=== PATIENT | male | born 1950 | race Caucasian/White ===

== ENCOUNTER 2019-07-06 14:21 | Inpatient (IN) | payer OTHER ==
[~2019-07-06] VITALS: Ht 167.6 cm; Wt 69.4 kg
[2019-07-06 14:23] VITALS: BP 143/89
[2019-07-06 15:44] VITALS: BP 143/89
[2019-07-06] MEDS ORDERED: NORVASC5 MG PO (15:53)
[2019-07-06] MEDS ORDERED: CIALIS5 MG PO (15:54)
[2019-07-06] MEDS ORDERED: LIPITOR10 MG PO ×2 (15:55→18:29)
--- NOTE | 2019-07-06 16:07 | NUR ---
TRIAGE NOTE COMPLETED BY DESHAWN CARRERA RN AND DOCUMENTED UNDER FARHAT SIMMONS
[2019-07-06 16:41] LABS: ABSOLUTE NEUTROPHILS 4.8 thou/uL (1.4-8.2); BASOPHILS 0.5 % (0.0-2.0); EOSINOPHILS 0.9 % (0.0-3.0); HEMATOCRIT 46.4 % (42.0-52.0); HEMOGLOBIN 15.9 gm/dL (14.0-18.0); LYMPHOCYTES 24.7 % (24.0-44.0); MCH 32.6 pg (26.0-34.0); MCHC 34.3 g/dL (28.0-37.0); MCV 94.9 fL (80.0-100.0); MONOCYTES 9.1 % (1.0-8.0); PLATELET COUNT 203 thou/uL (150-400); POLYS 64.8 % (36.0-66.0); RBC 4.89 mil/uL (4.50-6.00); RDW 13.6 % (10.5-14.5); WBC 7.4 thou/uL (4.0-11.0)
[2019-07-06 16:51] LABS: ANION GAP 12 mmol/L (7-16); BUN 18 mg/dL (7-18); CALCIUM 9.3 mg/dL (8.5-10.1); CHLORIDE 103 mmol/L (98-107); CO2 25 mmol/L (21-32); CREATININE 0.9 mg/dL (0.7-1.3); GLUCOSE 103 mg/dL (74-106); POTASSIUM 3.9 mmol/L (3.5-5.1); SODIUM 140 mmol/L (136-145)
[2019-07-06 16:53] LABS: URINE BILIRUBIN NEGATIVE (Negative); URINE BLOOD NEGATIVE (Negative); URINE CLARITY CLEAR; URINE COLOR YELLOW; URINE GLUCOSE-RANDOM* NEGATIVE (Negative); URINE KETONES NEGATIVE (Negative); URINE LEUKOCYTES-REFLEX NEGATIVE (Negative); URINE NITRITE-REFLEX NEGATIVE (Negative); URINE PROTEIN (DIPSTICK) NEGATIVE (Negative); URINE SPECIFIC GRAVITY 1.015 (1.005-1.035); URINE UROBILINOGEN 0.2 E.U./dl (0.2-1.0)
[2019-07-06 17:00] LABS: AMP/METHAMP Negative (Negative); BARBITURATES Negative (Negative); BENZODIAZEPINES Negative (Negative); COCAINE Negative (Negative); METHADONE Negative (Negative); OPIATES Negative (Negative); PCP Negative (Negative)
[2019-07-06 17:01] LABS: ALBUMIN 4.4 g/dL (3.4-5.0); MAGNESIUM 2.1 mg/dL (1.8-2.4); SGOT 17 U/L (15-37); SGPT 34 U/L (30-65); TOTAL BILIRUBIN 0.5 mg/dL (<0.1-1.0); TOTAL PROTEIN 8.2 g/dL (6.4-8.2); TROPONIN-I <0.06 ng/mL (<0.06)
--- NOTE | 2019-07-06 20:08 | NUR ---
PT WENT TO MRI
[2019-07-06 21:49] VITALS: BP 155/92
--- NOTE | 2019-07-06 22:35 | NUR ---
CALLED REPORT TO JENELLE IN CCU
[2019-07-06 22:44] VITALS: BP 134/93
--- NOTE | 2019-07-07 02:13 | NUR ---
PATIETNS CARES WERE ASSUMED AFTER BEING BROUGHT TO THE FLOOR FROM THE ER. PATIENT WAS ADMITTED,ASSESSED,AND MEDS ORDERED. PATIENT IS HIGH FALL RISK AT THIS TIME DUE TO A CVA. PATIENT ASSESSED TO CHECK FOR MORE NEURO CHANGES THOUGH THE NIG. FAMILY STATED AT THE BEDSIDE LATE INTO THE EVENING, AND SON WENT HOME AFTER SOME TIME. HOURLY ROUNING WAS DONE. THE BED IS IN A LOW AND LOCKED POSITION
[2019-07-07 04:42] VITALS: BP 136/83
--- NOTE | 2019-07-07 10:43 | HC ---
[facility] [place] [address] CONSULTATION Name: FRANCHESCA WARD Room #: 214-P ADM IN M.R.#: [id number] Admission: 07/06/19 Attend Phys: Frankie Blanco MD Discharge: Date of : 54 Report #: [id number] THIS REPORT FOR: //name// CC: Corey Hubbard Neeru DATE OF SERVICE: 07/06/2019 HISTORY OF PRESENT ILLNESS: This is a 68-year-old male patient who was seen by me in the Emergency Room. I discussed the patient with Emergency Room physician multiple times. This patient was admitted with some weakness on the right side. There was some numbness on the right side of the face. It came spontaneously around 11:30 and it was getting somewhat better, but he still has significant problem. He is left handed. REVIEW OF SYSTEMS: Indicates that he had trouble walking and had more trouble with the right lower extremity and to some extent in the right upper extremity. This was his relevant 14-point review of system. PAST MEDICAL HISTORY: Negative for any stroke. He does have some history of hypertension. FAMILY HISTORY: Unremarkable. SOCIAL HISTORY: He does have a history of drinking alcohol. PHYSICAL EXAMINATION: Indicate that the patient is alert, responsive, and able to follow simple and complex command. Cranial nerve examinations appear mostly unremarkable. He is weak in the right upper extremity, but he is left handed. In the lower extremities, the strength looks relatively preserved, but he has trouble with [id number] on the right side. His position sense is intact. Cardiac examinations appear unremarkable. No respiratory difficulty was noticed. IMPRESSION: This patient's symptoms are suggestive of stroke. His CT angio is unremarkable. We are awaiting for a stat MRI. If that shows some abnormality, we will proceed. Otherwise, he still needs the workup for stroke. He will need an echocardiogram. I will suggest starting him on some thiamine. We will document that bedside swallow was okay in this patient. More than 50 minutes of time was spent taking care of this patient today and [address] [address] CONSULTATION Name: EDFRANCHESCA Room #: 214-P [facility] IN M.R.#: [id number] Admission: 07/06/19 Attend Phys: Frankie Blanco MD Discharge: Date of : 54 Report #: [id number] majority of that time was spent counseling the patient and coordinating his care. <ELECTRONICALLY SIGNED> By: Brian Patterson MD 07/07/19 1043 2057 0038 Brian Patterson MD /nt
--- NOTE | 2019-07-07 14:10 | 2DMMODE ---
[facility] [address] [place] [address] 2 D/M-MODE ECHOCARDIOGRAM Name: FRANCHESCA WARD Room #: 214-P ADM IN ..#: [id number] Admission: 07/06/19 Attend Phys: Frankie Blanco MD Discharge: Date of : 54 Date of Service: 07/07/19 1410 Report #: [id number] THIS REPORT FOR: //name// APPROVED REPORT Study performed: 07/07/2019 12:54:26 EXAM: Comprehensive 2D, Doppler, and color-flow Echocardiogram Patient Location: In-Patient Room #: 214 Status: routine BSA: 1.77 HR: 85 bpm BP: 136/83 mmHg Rhythm: NSR Other Information Study Quality: Adequate Indications CVA/TIA Hypertension/HDD Echo Enhancing Agent Indication: Rule out Shunt Agent(s) / Amount(s) Used: Agitated Saline 7 cc 2D Dimensions RVDd: 20.84 mm IVSd: 7.89 (7-11mm) LVOT Diam: 17.54 (18-24mm) LVDd: 43.76 mm PWd: 9.23 (7-11mm) Ascending Ao: 28.08 (22-36mm) LVDs: 29.70 (25-40mm) Aortic Root: 30.61 mm IVC: 10.00 mm Volumes Left Atrial Volume (Systole) Single Plane 4CH: 28.75 mL Single Plane 2CH: 39.36 mL LA ESV Index: 21.00 mL/m2 Aortic Valve AoV Peak Colten.: 1.12 m/s AO Peak Gr.: 5.02 mmHg LVOT Max P.08 mmHg LVOT Max V: 1.01 m/s OLINDA Vmax: 2.18 cm2 [facility] [address] [place] [address] 2 D/M-MODE ECHOCARDIOGRAM Name: FRANCHESCA WARD Room #: 214-P [facility] IN .R.#: [id number] Admission: 07/06/19 Attend Phys: Frankie Blanco MD Discharge: Date of : 54 Date of Service: 07/07/19 1410 Report #: [id number] Mitral Valve E/A Ratio: 1.2 MV Decel. Time: 189.96 ms MV E Max Colten.: 0.76 m/s MV A Colten.: 0.66 m/s MV PHT: 55.09 ms IVRT: 83.04 ms Pulmonary Vein P Vein S: 0.57 m/s P Vein A: 0.41 m/s P Vein D: 0.43 m/s P Vein A Dur.: 124.6 msec P Vein S/D Ratio: 1.33 Left Ventricle The left ventricle is normal size. There is normal left ventricular wall thickness. The left ventricular systolic function is normal. The left ventricular ejection fraction is within the normal range. LVEF is 55-60%. Moderate diastolic dysfunction is present (pseudonormal filling). Right Ventricle The right ventricle is normal size. The right ventricular systolic function is normal. Atria The left atrium size is normal. Injection of bubbles is suggestive for a small PFO. The right atrium size is normal. Aortic Valve The aortic valve is normal in structure. No aortic regurgitation is present. There is no aortic valvular stenosis. Mitral Valve The mitral valve is normal in structure. Mild mitral regurgitation. No evidence of mitral valve stenosis. Tricuspid Valve The tricuspid valve is normal in structure. Trace tricuspid regurgitation. Pulmonic Valve Pulmonic valve is not well visualized. Great Vessels The aortic root is normal in size. IVC is normal in size and [facility] [address] [place] [address] 2 D/M-MODE ECHOCARDIOGRAM Name: FRANCHESCA WARD Room #: 214-P ADM IN M.R.#: [id number] Admission: 07/06/19 Attend Phys: Frankie Blanco MD Discharge: Date of : 54 Date of Service: 07/07/19 1410 Report #: [id number] collapses >50% with inspiration. Pericardium There is no pericardial effusion. <Conclusion> The left ventricle is normal size. There is normal left ventricular wall thickness. The left ventricular systolic function is normal. Moderate diastolic dysfunction is present (pseudonormal filling). The right ventricle is normal size. The left atrium size is normal. Injection of bubbles is suggestive for a small PFO. The aortic valve is normal in structure. Mild mitral regurgitation. Trace tricuspid regurgitation. <ELECTRONICALLY SIGNED> By: Paul Mendes MD 07/07/191409 09 09 Paul Mendes MD /INF
--- NOTE | 2019-07-07 14:33 | NUR ---
ASSUMED CARE AT 0700, SHIFT ASSESSMENT DONE, MEDS GIVEN, VSS. ON REGULAR DIET, SEEN BY PHYSICAL AND OCCUPATIONAL THERAPHY. STILL A FALL RISK, CALLS APPROPRIATELY. ROOM AIR, NSR. STILL HAS RIGHT LOWER EXTREMITY WEAKNESS. WILL CONTINUE TO ASSESS AND ASSIST WITH ADLs NEEDED.
[2019-07-07 15:58] VITALS: BP 138/71
[2019-07-07 20:16] VITALS: BP 154/103
--- NOTE | 2019-07-08 03:41 | NUR ---
RECEIVED PT'S CARE AT 1920; PT. ON BED; AOX4; RELATIVES AT THE BED SIDE; DURING ASSESSMENT NO C/O PAIN; EDUCATED ABOUT FALL PREVENTIONS; ST. UNDERSTANDING; HS MEDICATION GIVEN; REFUSED SCDs; EDUCATED ABOUT SCDs BENEFITS; ST. UNDERSTANDING; REFUSED IT; ST. WANTS TO REST THROUGH THE NIGHT; NO C/O WEAKNESS; TINGLING OR NUMBNESS; THORUGH THE NIGHT ABLE TO REST WITH EYES CLOSED; ASSESSMENT CHARGED; FOLLOWING POC; MONITORING; WILL PASS ON REPORT.
[2019-07-08 05:19] VITALS: BP 145/90
[2019-07-08 05:52] LABS: CHOLESTEROL 157 mg/dL (<200); HDL CHOLESTEROL 58 mg/dL (>40); LDL CHOLESTEROL 84 mg/dL (<100); TC:HDL 2.7 Ratio (Not establshd); TRIGLYCERIDE 77 mg/dL (<150); VLDL 15 mg/dL (<40)
[2019-07-08 05:53] LABS: SERUM ASSESSMENT Clear
[2019-07-08 08:00] VITALS: BP 130/82
--- NOTE | 2019-07-08 09:50 | NUR ---
ASSUMED CARE AT 0700, SHIFT ASSESSMENT DONE, MEDS GIVEN, VSS. DENIES PAIN, NAUSEA, VOMITING. NSR ON TELE. CIWA SCORE ZERO, UP WITH STANDBY. WILL CONTINUE TO ASSESS AND ASSIST WITH ADLs NEEDED.
--- NOTE | 2019-07-08 13:51 | EKG ---
[address] [place] [address] ELECTROCARDIOGRAM REPORT Name: FRANCHESCA WARD Room #: 214-P ADM IN M.R.#: [id number] Admission: 07/06/19 Attend Phys: Frankie Blanco MD Discharge: Date of : 54 Report #: [id number] THIS REPORT FOR: //name// [facility] ED Test Date: 2019-07-06 Test Time: 17:29:24 Pat Name: FRANCHESCA WARD Department: Room: 214 Gender: M River Guide: tonya : 1950 Requested By: Dinh Neri Order Number: [id number] MD: Caleb Mcgee Measurements Intervals [place] Rate: 85 P: 45 IN: 171 QRS: 41 QRSD: 96 T: 40 QT: 388 QTc: 462 Interpretive Statements Sinus rhythm Normal tracing No previous ECG available for comparison Electronically Signed On 07-08-2019 13:51:08 CDT by Caleb Mcgee [email or web address] <ELECTRONICALLY SIGNED> By: Caleb Mcgee MD, [facility] 07/08/19 1351 1729 1729 Caleb Mcgee MD, FACC /EPI
[2019-07-08] MEDS ORDERED: VITAMIN B-1100 M2 PO (14:15)
[2019-07-08] MEDS ORDERED: PRENATAL PO (14:15)
[2019-07-08] MEDS ORDERED: ASA5UEC PO (14:15)
--- NOTE | 2019-07-08 14:58 | NUR ---
Pt dc'd to home today with outpt f/u recommendations. no cm interventions indicated. Pt cleared by therapy/rehab for dc to home. case not opened.
[2019-07-08 16:09] VITALS: BP 130/82
== END 2019-07-08 16:37 | disposition home or self-care (01) | DRG 65 ==
LOC: ER 14:21 → EROBS 22:15 → 2N 22:15
PROVIDERS: Emergency Medicine; Nurse Practitioner Acute Care; ADMIT Hospitalist
DX: I63.81 Other cerebral infarction due to occlusion or stenosis of small artery (principal); G81.94 Hemiplegia, unspecified affecting left nondominant side; Q21.1 Atrial septal defect; I10 Essential (primary) hypertension; E78.5 Hyperlipidemia, unspecified; F10.10 Alcohol abuse, uncomplicated; R27.0 Ataxia, unspecified; Z81.1 Family history of alcohol abuse and dependence; Z82.49 Family history of ischemic heart disease and other diseases of the circulatory system; Z82.3 Family history of stroke; Z79.82 Long term (current) use of aspirin; Z79.899 Other long term (current) drug therapy
CPT/HCPCS: 10081